=== PATIENT | female | born 1995 | race Caucasian/White ===

== ENCOUNTER 2021-08-24 20:02 | Inpatient (IN) | payer BC ==
[2021-08-24 20:32] VITALS: BMI 28.3
[2021-08-24] MEDS ORDERED: Carboprost 250 MCG/ML AMP IM PRN (22:47)
[2021-08-24] MEDS ORDERED: Butorphanol Tartrate 1 MG/ML VIAL SLOW IVP PRN (22:47)
[2021-08-24] MEDS ORDERED: Diphenoxylate HCl/Atropine Tablet PO PRN (22:47)
[2021-08-24] MEDS ORDERED: Lidocaine 1% (PF) 30 ML VIAL SC PRN (22:47)
[2021-08-24] MEDS ORDERED: Methylergonovine 0.2 MG/ML VIAL IM PRN (22:47)
[2021-08-24] MEDS ORDERED: Promethazine HCl 25 MG/ML VIAL IM PRN (22:47)
[2021-08-24] MEDS ORDERED: Ondansetron PF 4 MG/2 ML Vial IVP PRN (22:47)
[2021-08-24] MEDS ORDERED: Misoprostol 200 MCG TAB PR PRN (22:47)
[2021-08-24] MEDS ORDERED: hydrALAZINE 20 MG/ML VIAL SLOW IVP PRN ×2 (22:47→23:44)
[2021-08-24] MEDS ORDERED: NS w/ Oxytocin 30 units 500 ML ONE (22:57)
[2021-08-24] MEDS ORDERED: Lidocaine 1% (PF) 30 ML VIAL ONE (22:57)
[2021-08-24] MEDS ORDERED: NS w/ Oxytocin 30 units 500 ML IV SCH ×2 (23:00)
[2021-08-24] MEDS ORDERED: Lactated Ringer's 1,000 ML IV SCH (23:00)
[2021-08-24 23:11] LABS: Hemoglobin 13.4 g/dL (12.0-15.5); Mean Corpuscular HGB CONC 34.1 g/dL (32.0-36.0); Mean Corpuscular Hemoglobin 29.6 pg (27.0-33.0); Mean Corpuscular Volume 86.8 fl (81.6-98.3); Mean Platelet Volume 10.3 fl (7.4-10.4); Platelet Count 342 10x3/uL (150-450); RBC Distribution Width 13.4 % (11.5-14.5); Red Blood Cell (RBC) Count 4.53 10x6/uL (3.90-5.03); White Blood Cell (WBC) Count 14.4 10x3/uL (3.5-10.5)
[2021-08-24] MEDS ORDERED: Boostrix 0.5 ML (Tdap) VIAL IM ONE (23:44)
[2021-08-24] MEDS ORDERED: Milk Of Magnesia 30 ML UDCUP PO PRN (23:44)
[2021-08-24] MEDS ORDERED: Bisacodyl 10 MG SUPP PR PRN (23:44)
[2021-08-25 00:27] LABS: Syphilis Antibody Nonreactive (Nonreactive); Syphilis Antibody Index 0.03 S/CO (<1.00 Non-Reactive)
[2021-08-25 00:28] LABS: Hep B Surf Ag Non-Reactive S/CO (NonReactive)
[2021-08-25 00:31] LABS: HBSAg Index 0.17 S/CO (0-0.99)
[2021-08-25 01:23] LABS: SARS-CoV-2 NAA Rapid Test Not Detected (NotDetected)
[2021-08-25 05:42] LABS: #Monocytes 1.5 10x3/uL (0.0-1.1); #Neutrophils 13.2 10x3/uL (1.5-8.4); %Basophils 0.2 % (0.0-2.0); %Eosinophils 0.1 % (0.0-6.0); %Lymphocytes 15.4 % (18.0-47.0); %Monocytes 8.3 % (0.0-10.0); %Neutrophils 75.1 % (40.0-75.0); Hemoglobin 11.7 g/dL (12.0-15.5); Mean Corpuscular HGB CONC 34.7 g/dL (32.0-36.0); Mean Corpuscular Hemoglobin 29.5 pg (27.0-33.0); Mean Corpuscular Volume 84.9 fl (81.6-98.3); Mean Platelet Volume 10.5 fl (7.4-10.4); Platelet Count 273 10x3/uL (150-450); RBC Distribution Width 13.2 % (11.5-14.5); Red Blood Cell (RBC) Count 3.97 10x6/uL (3.90-5.03); White Blood Cell (WBC) Count 17.6 10x3/uL (3.5-10.5)
[2021-08-25] MEDS ORDERED: Ibuprofen 800 MG TAB PO SCH (06:00)
[2021-08-25] MEDS: Ibuprofen 800 MG TAB PO SCH ×3 (08:59→18:22)
[2021-08-25] MEDS: Ferrous Sulfate 325 MG TAB PO SCH ×2 (09:08→18:24)
[2021-08-25] MEDS: Docusate 100 MG CAP PO SCH (09:08)
[2021-08-26] MEDS: Ibuprofen 800 MG TAB PO SCH (05:15)
[2021-08-26] MEDS: Docusate 100 MG CAP PO SCH ×2 (05:24→08:06)
[2021-08-26 07:39] VITALS: BP 121/76; TEMP 98.2
[2021-08-26] MEDS: Ferrous Sulfate 325 MG TAB PO SCH (08:05)
== END 2021-08-26 11:20 | disposition home or self-care (01) | DRG 807 ==
LOC: CSHLD/OP 20:02 → CSHLD 23:25 → CSHPP 08-25 01:34
PROVIDERS: ADMIT Obstetrics & Gynecology; ATTEND Obstetrics & Gynecology
PROC: 10E0XZZ Delivery of Products of Conception, External Approach (ICD-10-PCS; principal; 2021-08-24)
DX: O26.893 Other specified pregnancy related conditions, third trimester (principal); Z37.0 Single live birth; Z67.21 Type B blood, Rh negative; Z3A.40 40 weeks gestation of pregnancy; Z20.822 Contact with and (suspected) exposure to COVID-19; O69.81X0 Labor and delivery complicated by cord around neck, without compression, not applicable or unspecified
CPT/HCPCS: 36415; 85025; 85027; 86780; 86850; 86900; 86901; 87340; 99285; J2001; J2590; U0002